=== PATIENT | male | born 1940 | race Caucasian/White ===

== ENCOUNTER 2018-06-04 19:45 | Emergency (ER) | payer MEDICARE ==
--- NOTE | 2018-06-04 19:59 | EDM.PDOC ---
ED HPI GENERAL MEDICAL PROBLEM - General Chief Complaint: Genitourinary Problem Stated Complaint: RUNNING A TEMP/POSS UTI/URINATING FREQUENTLY Time Seen by Provider: 06/04/18 19:58 Source of Information: Reports: Patient - History of Present Illness INITIAL COMMENTS - FREE TEXT/NARRATIVE: Patient is here for evaluation of overall feeling unwell. States that he is suspected fever on several occasions over the past week, it goes up to 102 but immediately comes down with ibuprofen. He states he is urinating more frequently, occ mild dysuria but no hematuria. Occasional cough but this is nonproductive and patient states that he does not have any shortness of breath wheezing or chest pain. Denies any abdominal pain or vomiting. Denies any diarrhea. Occasional nausea when his fever spikes. Denies any unhealing wounds, denies any joint pain. Chronic medical diagnosis of hypertension, diabetes and neuropathy. - Related Data Allergies Allergy/AdvReac Type Severity Reaction Status Date / Time No Known Allergies Allergy Verified 06/04/18 20:00 Home Meds: Home Meds Allopurinol [Zyloprim] 1 tab PO DAILY 06/04/18 [History] Aspirin [Ecotrin] 162.5 mg PO DAILY 06/04/18 [History] Calcium Carbonate/Vitamin D3 [Calcium 600 + Vit D 400 Softgl] 1 cap PO BID 06/04 [History] Ciprofloxacin HCl [Cipro] 500 mg PO BID #28 tablet 06/04/18 [Rx] Colestipol HCl [Colestipol] 100 mg PO DAILY 06/04/18 [History] Docusate Sodium [Colace] 1 cap PO DAILY 06/04/18 [History] Doxycycline [Vibramycin] 100 mg PO BID #60 cap 06/04/18 [Rx] Gabapentin [Neurontin] 200 cap PO TID 06/04/18 [History] Multivitamin [Multivitamins] 1 cap PO DAILY 06/04/18 [History] Simvastatin [Zocor] 40 mg PO BEDTIME 06/04/18 [History] ED ROS GENERAL - Review of Systems Review Of Systems: See Below Constitutional: Reports: Fever, Chills, Fatigue HEENT: Reports: No Symptoms Respiratory: Reports: Cough. Denies: Shortness of Breath, Wheezing Cardiovascular: Reports: No Symptoms GI/Abdominal: Reports: No Symptoms : Reports: Dysuria, Frequency, Urinary Retention. Denies: Hematuria Musculoskeletal: Reports: No Symptoms Skin: Reports: No Symptoms Neurological: Reports: No Symptoms Psychiatric: Reports: No Symptoms ED EXAM, RENAL/ - Physical Exam Exam: See Below Exam Limited By: No Limitations General Appearance: Alert, WD/WN, No Apparent Distress Throat/Mouth: Normal Oropharynx, Other (Poor dentition) Head: Atraumatic, Normocephalic Neck: Normal Inspection, Supple, Non-Tender Respiratory/Chest: No Respiratory Distress, Lungs Clear, Normal Breath Sounds, No Accessory Muscle Use Cardiovascular: Normal Peripheral Pulses, Regular Rate, Rhythm, No Murmur, Other (Difficult to auscultate heart sounds due to body habitus) GI/Abdominal: Normal Bowel Sounds, Soft, Non-Tender, Other (NO CVA tenderness) (Male) Exam: Other (Mild prostate enlargement but prostate is difficult to feel d/t body habitus.) Back Exam: No: CVA Tenderness (L), CVA Tenderness (R) Neurological: Alert, Oriented Psychiatric: Normal Affect, Normal Mood Skin Exam: Warm, Dry, Intact EKG INTERPRETATION EKG Date: 06/04/18 Time: 20:25 Rhythm: NSR Rate (Beats/Min): 98 [place]: LAD-Left [place] Deviation EKG Interpretation Comments: Reviewed with Dr Ospina, suggestive of old inferior wall [place] Course - Vital Signs Last Recorded V/S: Last Vital Signs Temp 98.4 F 06/04/18 19:56 Pulse 106 H 06/04/18 19:56 Resp 18 06/04/18 19:56 BP 98/71 06/04/18 19:56 Pulse Ox 92 L 06/04/18 19:56 - Orders/Labs/Meds Orders: Active Orders 24 hr Category Date Time Status Bladder Scan [RC] ASDIRECTED Care 06/04/18 21:09 Active EKG 12 Lead [EKG Documentation Completion] [RC] STAT Care 06/04/18 20:10 Active CXR [Chest 2V] [CR] Stat Exams 06/04/18 20:11 Taken Sodium Chloride 0.9% [Normal Saline] 1,000 ml Med 06/04/18 20:11 Active IV ONETIME Medication Orders Sodium Chloride (Normal Saline) 1,000 mls @ 500 mls/hr IV ONETIME ONE Stop: 06/04/18 22:10 Last Admin: 06/04/18 20:22 Dose: 500 mls/hr Labs: Laboratory Tests 06/04/18 06/04/18 06/04/18 Range/Units 20:12 20:20 20:20 WBC 10.74 H (4.23-9.07) K/mm3 RBC 4.91 (4.63-6.08) M/mm3 Hgb 14.5 (13.7-17.5) gm/L Hct 43.7 (40.1-51.0) % MCV 89.0 (79.0-92.2) fl MCH 29.5 (25.7-32.2) pg MCHC 33.2 (32.2-35.5) g/dl RDW Std Deviation 42.9 (35.1-43.9) fL Plt Count 195 (163-337) K/mm3 MPV 8.9 L (9.4-12.3) fl Neutrophils % (Manual) 78 H (40-60) % Band Neutrophils % 0 (0-10) % Lymphocytes % (Manual) 12 L (20-40) % Atypical Lymphs % 0 % Monocytes % (Manual) 5 (2-10) % Eosinophils % (Manual) 4 (0.8-7.0) % Basophils % (Manual) 1 (0.2-1.2) Platelet Estimate Adequate Plt Morphology Comment Normal RBC Morph Comment Normal Sodium 139 (136-145) mEq/L Potassium 3.8 (3.5-5.1) mEq/L Chloride 103 (98-107) mEq/L Carbon Dioxide 26 (21-32) mEq/L Anion Gap 13.8 (5-15) BUN 21 H (7-18) mg/dL Creatinine 1.5 H (0.7-1.3) mg/dL Est Cr Clr Drug Dosing 47.35 mL/min Estimated GFR (MDRD) 46 (>60) mL/min BUN/Creatinine Ratio 14.0 (14-18) Glucose 128 H (83-115) mg/dL Calcium 9.1 (8.5-10.1) mg/dL Total Bilirubin 2.0 H (0.2-1.0) mg/dL AST 25 (15-37) U/L ALT 36 (16-63) U/L Alkaline Phosphatase 89 (46-116) U/L Troponin I < 0.017 (0.00-0.056) ng/mL C-Reactive Protein 12.0 H* (<1.0) mg/dL Total Protein 7.4 (6.4-8.2) g/dl Albumin 3.3 L (3.4-5.0) g/dl Globulin 4.1 gm/dL Albumin/Globulin Ratio 0.8 L (1-2) TSH 3rd Generation 2.809 (0.358-3.74) uIU/mL Urine Color Yellow (Yellow) Urine Appearance Cloudy H (Clear) Urine pH 6.0 (5.0-8.0) Ur Specific [place] 1.020 (1.005-1.030) Urine Protein 1+ H (Negative) Urine Glucose (UA) Negative (Negative) Urine Ketones 2+ H (Negative) Urine Occult Blood 2+ H (Negative) Urine Nitrite Positive H (Negative) Urine Bilirubin Negative (Negative) Urine Urobilinogen 1.0 (0.2-1.0) Ur Leukocyte Esterase 2+ H (Negative) Urine RBC 5-10 H (0-5) /hpf Urine WBC >100 H (0-5) /hpf Urine WBC Clumps Many (NOT SEEN) /hpf Ur Epithelial Cells 5-10 H (0-5) /hpf Urine Bacteria Many H (FEW) /hpf Urine Mucus Moderate H (FEW) /hpf Meds: Medications Generic Name Dose Route Start Last Admin Trade Name Freq PRN Reason Stop Dose Admin Sodium Chloride 1,000 mls @ 500 mls/hr 06/04/18 20:11 06/04/18 20:22 Normal Saline IV 06/04/18 22:10 500 mls/hr ONETIME ONE Administration Discontinued Medications Generic Name Dose Route Start Last Admin Trade Name Freq PRN Reason Stop Dose Admin Ceftriaxone Sodium 1 gm/ 100 mls @ 200 mls/hr 06/04/18 21:04 06/04/18 21:12 Sodium Chloride IV 06/04/18 21:33 200 mls/hr ONETIME ONE Administration Levofloxacin 500 mg 06/04/18 21:04 06/04/18 21:12 Levaquin PO 06/04/18 21:05 500 mg ONETIME ONE Administration - Re-Assessments/Exams Free Text/Narrative Re-Assessment/Exam: Urinalysis demonstrates significant infection. Mild prostate enlargement. Post-void residual demonstrated 65mL urine. WBC 10,740 with 78% neutrophils and no bands. CRP is 12. He is currently afebrile. Eating and drinking well. Discussed this with Dr. Ospina, will treat UTI/prostatitis with Cipro 14 days and doxycycline 30 days. Will likely need repeat UA after completion of treatment and possibly urology consult but patient will need to discuss this with PCP. Advised patient to increase fluid intake. Lungs CTA bilaterally, chest x-ray is unremarkable but official report is pending. Patient will need to follow up with his PCP early next week or certainly return to the emergency room if needed. 06/04/18 21:55 06/04/18 22:11 Departure - Departure Time of Disposition: 22:12 Disposition: Home, Self-Care 01 Condition: Fair Clinical Impression: Prostatitis UTI (urinary tract infection) Qualifiers: Urinary tract infection type: acute cystitis Hematuria presence: with hematuria Qualified Code(s): N30.01 - Acute cystitis with hematuria - Discharge Information Prescriptions: Ciprofloxacin HCl [Cipro] 500 mg PO BID #28 tablet Doxycycline [Vibramycin] 100 mg PO BID #60 cap Instructions: Urinary Tract Infection, Adult, [id number], Prostatitis, Easy- to-Read Referrals: Giorgio Bass MD [Primary Care Provider] - Forms: ED Department Discharge Additional Instructions: You were diagnosed with bladder infection and prostatitis. You have been prescribed cipro 2x daily for 2 weeks and doxycycline 2x daily for a month. You need to follow-up with your PCP next week or return to ED for any new or worsening symptoms. - My Orders Last 24 Hours: My Active Orders 06/04/18 20:10 EKG 12 Lead [EKG Documentation Completion] [RC] STAT 06/04/18 20:11 CXR [Chest 2V] [CR] Stat Sodium Chloride 0.9% [Normal Saline] 1,000 ml IV ONETIME 06/04/18 21:09 Bladder Scan [RC] ASDIRECTED - Assessment/Plan Last 24 Hours: My Active Orders 06/04/18 20:10 EKG 12 Lead [EKG Documentation Completion] [RC] STAT 06/04/18 20:11 CXR [Chest 2V] [CR] Stat Sodium Chloride 0.9% [Normal Saline] 1,000 ml IV ONETIME 06/04/18 21:09 Bladder Scan [RC] ASDIRECTED
[2018-06-04 20:00] VITALS: BP 98/71
[2018-06-04] MEDS ORDERED: Sodium Chloride 0.9% 1,000 ML IV ONE (20:11)
[2018-06-04] MEDS ORDERED: Levofloxacin 500 MG Tab PO ONE (21:04)
[2018-06-04] MEDS ORDERED: cefTRIAXone 1 GM in Sodium Chloride 0.9% 100 ML IV ONE (21:04)
--- NOTE | 2018-06-06 17:03 | CR ---
Chest: Two views of the chest were obtained. Comparison: Prior chest x-ray of 04/03/15. Heart size is normal. Tortuous thoracic aorta is seen. Lungs are clear without acute parenchymal change. Bony structures show degenerative endplate spurring within the spine. Impression: 1. Nothing acute is appreciated on two-view chest x-ray. Diagnostic code #2
== END 2018-06-04 22:20 | disposition home or self-care (01) ==
LOC: JD.ED 19:45
DX: N30.01 Acute cystitis with hematuria (principal); N41.9 Inflammatory disease of prostate, unspecified; Z79.899 Other long term (current) drug therapy; Z79.82 Long term (current) use of aspirin
CPT/HCPCS: 36415; 51798; 71046; 80053; 81001; 84443; 84484; 85007; 85027; 86140; 93005; 96361; 96365; 99284; A9270; J0696; J7030; J7040; 93010

== ENCOUNTER 2019-11-17 12:23 | Emergency (ER) | payer MEDICARE, OTHER ==
[2019-11-17] MEDS ORDERED: Dextrose 5%-0.9% NaCl 1,000 ML IV SCH (13:45)
--- NOTE | 2019-11-17 14:06 | EDM.PDOC ---
ED HPI GENERAL MEDICAL PROBLEM - General Chief Complaint: Syncope Stated Complaint: PASSING OUT, BP LOW, LIGHTHEADED Time Seen by Provider: 11/17/19 14:04 Source of Information: Reports: Patient, Family (female friend) History Limitations: Reports: No Limitations - History of Present Illness INITIAL COMMENTS - FREE TEXT/NARRATIVE: 79-year-old male presents to the ED just generally not feeling well. He states he got up and came downstairs this morning and felt a little weak and a little bit dizzy and not not quite himself. He was winded on minimal exertion.in his easy chair and his female friend brought him a cup of coffee per usual. When he went to go back upstairs he barely made it up a flight of stairs before feeling so short of wind and that he might pass out. He then made his way to the bedroom and apparently passed out completely on the bed lost control of his bladder but not his bowel. When his female friend attended him she found him to wake be quite cool and clammy. Patient is known to be diabetic but does not take insulin for diabetes. When she checked his sugar this morning it was 110. Since that time he is just generally not feeling well. States he feels much more short of breath than usual has a bit of a headache Onset: Today Onset Date: 11/17/19 Onset Time: 08:00 Duration: Hour(s):, Constant, Waxing/Waning Location: Reports: Generalized (My sense of shortness of breath on minimal exertion. No pleuritic chest pain no hemoptysis. Appreciates dyspnea on minimal exertion) Quality: Reports: Other Severity: Moderate (Me on minimal exertion) Improves with: Reports: Rest Worsens with: Reports: Other Context: Reports: Other (Spontaneous development overnight and was present this morning when he first got up). Denies: Activity (Walking.), Exercise, Lifting, Sick Contact, Trauma Associated Symptoms: Reports: Cough, Loss of Appetite, Malaise (Nonproductive), Shortness of Breath, Weakness. 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) - Related Data Allergies Allergy/AdvReac Type Severity Reaction Status Date / Time No Known Allergies Allergy Verified 11/17/19 13:10 Home Meds: Home Meds Aspirin [Ecotrin EC] 81 mg PO DAILY 06/04/18 [History] Calcium Carbonate/Vitamin D3 [Calcium 600 + Vit D 400 Softgl] 1 cap PO BID 06/04 [History] Colestipol HCl [Colestipol] 1 gram PO DAILY 06/04/18 [History] Gabapentin [Neurontin] 200 cap PO TID 06/04/18 [History] Multivitamin [Multivitamins] 1 cap PO DAILY 06/04/18 [History] Apixaban [Eliquis] 5 mg PO BID #60 tablet 11/17/19 [Rx] Apixaban [Eliquis] 10 mg PO BID #13 tablet 11/17/19 [Rx] Doxycycline [Vibramycin] 100 mg PO BID #16 cap 11/17/19 [Rx] Empagliflozin [Jardiance] 10 mg PO DAILY 11/17/19 [History] Latanoprost 1 drop TOP QPM 11/17/19 [History] Metoprolol Tartrate [Lopressor] 100 mg PO DAILY 11/17/19 [History] Sertraline [Zoloft] 100 mg PO DAILY 11/17/19 [History] Simvastatin [Zocor] 80 mg PO DAILY 11/17/19 [History] metFORMIN HCl [Metformin HCl] 1,500 mg PO DAILY 11/17/19 [History] Past Medical History Cardiovascular History: Reports: High Cholesterol, Hypertension Musculoskeletal History: Reports: Gout, Other (See Below) Other Musculoskeletal History: numbness in both hands Neurological History: Reports: Other (See Below) Other Neuro History: fractured vertebrae, nerve damage Social & Family History - Tobacco Use Smoking Status *Q: Never Smoker - Caffeine Use Caffeine Use: Reports: Coffee - Recreational Drug Use Recreational Drug Use: No - Living Situation & Occupation Living situation: Reports: Single, Other Occupation: Retired ED ROS GENERAL - Review of Systems Review Of Systems: See Below Constitutional: Reports: Malaise, Weakness, Fatigue, Decreased Appetite. Denies : Fever, Chills HEENT: Reports: Glasses Respiratory: Reports: Shortness of Breath (Usually nonproductive), Cough. Denies: Wheezing, Pleuritic Chest Pain, Sputum Cardiovascular: Reports: Blood Pressure Problem, Dyspnea on Exertion, Lightheadedness. Denies: Chest Pain, Claudication, Edema, Orthopnea, Palpitations Endocrine: Reports: Fatigue GI/Abdominal: Reports: Abdominal Pain, Constipation (Comes and goes), Decreased Appetite : Reports: Frequency, Other Musculoskeletal: Reports: No Symptoms Skin: Reports: No Symptoms Neurological: Reports: Dizziness Psychiatric: Reports: No Symptoms Hematologic/Lymphatic: Reports: No Symptoms Immunologic: Reports: No Symptoms ED EXAM, DIZZINESS - Physical Exam Exam: See Below Exam Limited By: No Limitations General Appearance: Alert, WD/WN, Mild Distress, Other (Temperature is 36.3 with a heart rate of 51 I sinus bradycardia on monitor. Respiratory of 16-18 with O2 sats of 94 to 96% on room air.) Eye Exam: Bilateral Eye: Normal Inspection Ears: Normal TMs Throat/Mouth: Normal Inspection (Is slightly dry.), Normal Lips, Normal Oropharynx, Other Head Exam: Atraumatic, Normocephalic Neck: Normal Inspection, Supple, Non-Tender, Full Range of Motion, Tender Lateral (Mildly tender bilaterally due to arthritic change.). No: Carotid Bruit , Lymphadenopathy (L), Lymphadenopathy (R) Respiratory/Chest: No Respiratory Distress, Respiratory Distress, Decreased Breath Sounds Cardiovascular: No Edema, No Gallop, No Murmur, No Rub, Bradycardia. No: Normal Peripheral Pulses, Regular Rate, Rhythm GI/Abdominal: Normal Bowel Sounds, Soft, Non-Tender, No Organomegaly, No Abnormal Bruit, No Mass, Pelvis Stable, Other (Currently obese. Abdominal girth limits ability to palpate solid organs.) Neurological: Alert, Normal Mood/Affect, Normal Dorsiflexion, CN II-XII Intact, No Motor/Sensory Deficits, Oriented x 3 DTR: 0: Achilles (R), Achilles (L), 1+: Bicep (R), Bicep (L), Patella (R), Patella (L) Back Exam: Normal Inspection, Decreased Range of Motion. No: CVA Tenderness (L) , CVA Tenderness (R) Extremities: Normal Inspection, Normal Range of Motion, Non-Tender, Other (Is limited) Psychiatric: Normal Affect ( internal and external rotation of both hips due to arthritis. Evidence of osteoarthritic change in both knees.), Normal Mood Skin Exam: Warm, Dry, Intact, Normal Color, No Rash EKG INTERPRETATION EKG Date: 11/17/19 Time: 13:20 Rhythm: Other Rate (Beats/Min): 51 [place]: LAD-Left [place] Deviation (Next left axis deviation of -64 degrees) P-Wave: Present (First-degree AV block) QRS: LBBB ST-T: Other (T wave inversion in leads III and aVL nonspecific findings) QT: Normal EKG Interpretation Comments: Abnormal ECG Course - Vital Signs Last Recorded V/S: Last Vital Signs Temp 36.2 C 11/17/19 18:07 Pulse 48 L 11/17/19 18:07 Resp 23 H 11/17/19 18:07 BP 146/81 H 11/17/19 18:07 Pulse Ox 97 11/17/19 18:07 - Orders/Labs/Meds Orders: Active Orders 24 hr Category Date Time Status EKG Documentation Completion [RC] STAT Care 11/17/19 13:16 Active EKG Documentation Completion [RC] STAT Care 11/17/19 13:41 Inactive Isolation [COMM] Routine Oth 11/17/19 14:33 Ordered Labs: Laboratory Tests 11/17/19 11/17/19 11/17/19 Range/Units 14:05 14:05 14:05 WBC 8.42 (4.23-9.07) K/mm3 RBC 5.07 (4.63-6.08) M/mm3 Hgb 13.7 (13.7-17.5) gm/dl Hct 44.3 (40.1-51.0) % MCV 87.4 (79.0-92.2) fl MCH 27.0 (25.7-32.2) pg MCHC 30.9 L (32.2-35.5) g/dl RDW Std Deviation 48.2 H (35.1-43.9) fL Plt Count 258 (163-337) K/mm3 MPV 8.7 L (9.4-12.3) fl Neut % (Auto) 69.8 H (34.0-67.9) % Lymph % (Auto) 14.1 L (21.8-53.1) % [place] % (Auto) 8.9 (5.3-12.2) % Eos % (Auto) 6.5 (0.8-7.0) Baso % (Auto) 0.5 (0.1-1.2) % Neut # (Auto) 5.87 H (1.78-5.38) K/mm3 Lymph # (Auto) 1.19 L (1.32-3.57) K/mm3 [place] # (Auto) 0.75 (0.30-0.82) K/mm3 Eos # (Auto) 0.55 H (0.04-0.54) K/mm3 Baso # (Auto) 0.04 (0.01-0.08) K/mm3 PT (9.7-12.0) SECONDS INR APTT (22-31) SECONDS D-Dimer, Quantitative (0.19-0.50) mg/L Sodium 140 (136-145) mEq/L Potassium 4.3 (3.5-5.1) mEq/L Chloride 105 (98-107) mEq/L Carbon Dioxide 26 (21-32) mEq/L Anion Gap 13.3 (5-15) BUN 18 (7-18) mg/dL Creatinine 1.1 (0.7-1.3) mg/dL Est Cr Clr Drug Dosing 63.56 mL/min Estimated GFR (MDRD) > 60 (>60) mL/min BUN/Creatinine Ratio 16.4 (14-18) Glucose 106 (83-115) mg/dL Hemoglobin A1c (4.50-6.20) % Lactic Acid (0.4-2.0) mmol/L Calcium 8.7 (8.5-10.1) mg/dL Total Bilirubin 1.2 H (0.2-1.0) mg/dL AST 17 (15-37) U/L ALT 24 (16-63) U/L Alkaline Phosphatase 86 (46-116) U/L Troponin I < 0.017 (0.00-0.056) ng/mL C-Reactive Protein (<1.0) mg/dL NT-Pro-B Natriuret Pep 269 (0-450) pg/mL Total Protein 7.1 (6.4-8.2) g/dl Albumin 3.4 (3.4-5.0) g/dl Globulin 3.7 gm/dL Albumin/Globulin Ratio 0.9 L (1-2) Urine Color (Yellow) Urine Appearance (Clear) Urine pH (5.0-8.0) Ur Specific [place] (1.005-1.030) Urine Protein (Negative) Urine Glucose (UA) (Negative) Urine Ketones (Negative) Urine Occult Blood (Negative) Urine Nitrite (Negative) Urine Bilirubin (Negative) Urine Urobilinogen (0.2-1.0) Ur Leukocyte Esterase (Negative) Urine RBC (0-5) /hpf Urine WBC (0-5) /hpf Ur Squamous Epith Cells (0-5) /hpf Urine Bacteria (FEW) /hpf Urine Mucus (FEW) /hpf 11/17/19 11/17/19 11/17/19 Range/Units 14:05 14:05 14:05 WBC (4.23-9.07) K/mm3 RBC (4.63-6.08) M/mm3 Hgb (13.7-17.5) gm/dl Hct (40.1-51.0) % MCV (79.0-92.2) fl MCH (25.7-32.2) pg MCHC (32.2-35.5) g/dl RDW Std Deviation (35.1-43.9) fL Plt Count (163-337) K/mm3 MPV (9.4-12.3) fl Neut % (Auto) (34.0-67.9) % Lymph % (Auto) (21.8-53.1) % [place] % (Auto) (5.3-12.2) % Eos % (Auto) (0.8-7.0) Baso % (Auto) (0.1-1.2) % Neut # (Auto) (1.78-5.38) K/mm3 Lymph # (Auto) (1.32-3.57) K/mm3 [place] # (Auto) (0.30-0.82) K/mm3 Eos # (Auto) (0.04-0.54) K/mm3 Baso # (Auto) (0.01-0.08) K/mm3 PT (9.7-12.0) SECONDS INR APTT (22-31) SECONDS D-Dimer, Quantitative (0.19-0.50) mg/L Sodium (136-145) mEq/L Potassium (3.5-5.1) mEq/L Chloride (98-107) mEq/L Carbon Dioxide (21-32) mEq/L Anion Gap (5-15) BUN (7-18) mg/dL Creatinine (0.7-1.3) mg/dL Est Cr Clr Drug Dosing mL/min Estimated GFR (MDRD) (>60) mL/min BUN/Creatinine Ratio (14-18) Glucose (83-115) mg/dL Hemoglobin A1c 6.00 (4.50-6.20) % Lactic Acid 1.1 (0.4-2.0) mmol/L Calcium (8.5-10.1) mg/dL Total Bilirubin (0.2-1.0) mg/dL AST (15-37) U/L ALT (16-63) U/L Alkaline Phosphatase (46-116) U/L Troponin I (0.00-0.056) ng/mL C-Reactive Protein 2.8 H* (<1.0) mg/dL NT-Pro-B Natriuret Pep (0-450) pg/mL Total Protein (6.4-8.2) g/dl Albumin (3.4-5.0) g/dl Globulin gm/dL Albumin/Globulin Ratio (1-2) Urine Color (Yellow) Urine Appearance (Clear) Urine pH (5.0-8.0) Ur Specific [place] (1.005-1.030) Urine Protein (Negative) Urine Glucose (UA) (Negative) Urine Ketones (Negative) Urine Occult Blood (Negative) Urine Nitrite (Negative) Urine Bilirubin (Negative) Urine Urobilinogen (0.2-1.0) Ur Leukocyte Esterase (Negative) Urine RBC (0-5) /hpf Urine WBC (0-5) /hpf Ur Squamous Epith Cells (0-5) /hpf Urine Bacteria (FEW) /hpf Urine Mucus (FEW) /hpf 11/17/19 11/17/19 Range/Units 14:51 14:54 WBC (4.23-9.07) K/mm3 RBC (4.63-6.08) M/mm3 Hgb (13.7-17.5) gm/dl Hct (40.1-51.0) % MCV (79.0-92.2) fl MCH (25.7-32.2) pg MCHC (32.2-35.5) g/dl RDW Std Deviation (35.1-43.9) fL Plt Count (163-337) K/mm3 MPV (9.4-12.3) fl Neut % (Auto) (34.0-67.9) % Lymph % (Auto) (21.8-53.1) % [place] % (Auto) (5.3-12.2) % Eos % (Auto) (0.8-7.0) Baso % (Auto) (0.1-1.2) % Neut # (Auto) (1.78-5.38) K/mm3 Lymph # (Auto) (1.32-3.57) K/mm3 [place] # (Auto) (0.30-0.82) K/mm3 Eos # (Auto) (0.04-0.54) K/mm3 Baso # (Auto) (0.01-0.08) K/mm3 PT 10.9 (9.7-12.0) SECONDS INR 1.00 APTT 28 (22-31) SECONDS D-Dimer, Quantitative 3.88 H (0.19-0.50) mg/L Sodium (136-145) mEq/L Potassium (3.5-5.1) mEq/L Chloride (98-107) mEq/L Carbon Dioxide (21-32) mEq/L Anion Gap (5-15) BUN (7-18) mg/dL Creatinine (0.7-1.3) mg/dL Est Cr Clr Drug Dosing mL/min Estimated GFR (MDRD) (>60) mL/min BUN/Creatinine Ratio (14-18) Glucose (83-115) mg/dL Hemoglobin A1c (4.50-6.20) % Lactic Acid (0.4-2.0) mmol/L Calcium (8.5-10.1) mg/dL Total Bilirubin (0.2-1.0) mg/dL AST (15-37) U/L ALT (16-63) U/L Alkaline Phosphatase (46-116) U/L Troponin I (0.00-0.056) ng/mL C-Reactive Protein (<1.0) mg/dL NT-Pro-B Natriuret Pep (0-450) pg/mL Total Protein (6.4-8.2) g/dl Albumin (3.4-5.0) g/dl Globulin gm/dL Albumin/Globulin Ratio (1-2) Urine Color Yellow (Yellow) Urine Appearance Clear (Clear) Urine pH 7.0 (5.0-8.0) Ur Specific [place] 1.020 (1.005-1.030) Urine Protein Negative (Negative) Urine Glucose (UA) Negative (Negative) Urine Ketones Negative (Negative) Urine Occult Blood Negative (Negative) Urine Nitrite Negative (Negative) Urine Bilirubin Negative (Negative) Urine Urobilinogen 0.2 (0.2-1.0) Ur Leukocyte Esterase Negative (Negative) Urine RBC 0-5 (0-5) /hpf Urine WBC 0-5 (0-5) /hpf Ur Squamous Epith Cells 0-5 (0-5) /hpf Urine Bacteria Few (FEW) /hpf Urine Mucus Few (FEW) /hpf Meds: Medications Discontinued Medications Generic Name Dose Route Start Last Admin Trade Name Mauriceq PRN Reason Stop Dose Admin Apixaban 10 mg 11/17/19 17:08 11/17/19 17:36 Eliquis PO 11/17/19 17:09 10 mg ONETIME ONE Administration Dextrose/Sodium Chloride 1,000 mls @ 350 mls/hr 11/17/19 13:45 11/17/19 14:05 Dextrose 5%-Normal Saline IV 350 mls/hr ASDIRECTED GEORGE Administration Sodium Chloride 100 mls @ 60 mls/hr 11/17/19 16:15 11/17/19 16:36 Normal Saline IV 60 mls/hr ASDIRECTED GEORGE Administration Iopamidol 100 ml 11/17/19 16:01 11/17/19 16:35 Isovue-370 (76%) IVPUSH 11/17/19 16:02 100 ml ONETIME ONE Administration Sodium Chloride 10 ml 11/17/19 16:01 11/17/19 16:35 Saline Flush FLUSH 11/17/19 16:02 10 ml ONETIME ONE Administration - Radiology Interpretation Free Text/Narrative:: 79-year-old male presents to the ED just generally not feeling good. He states when he got up this morning he came downstairs and he felt a little short of breath. He sat down in his easy chair and his friend brought him a cup of coffee as per usual. When he got up to go upstairs he felt very short of breath when he reached the top of the stairs and like he was going to pass out. He staggered into the bedroom side on the bed and did pass out apparently on the bed. He did lose control of his bladder but not his bowel. When he came around he did realize that he passed out and his friend was with him to arouse him. Since that time he is continued to feel short of breath even after a short nap. He has mild cough but no defined fever. He did not have much to eat this morning. Has taken his regular medications. Examination reveals initial O2 sats were 96% but they did drift down towards 92% once he was stable for period of time. Plan chest x-ray and routine labs and EKG to be done and cardiac markers. - Re-Assessments/Exams Free Text/Narrative Re-Assessment/Exam: 11/17/19 14:38 chest x-ray done portably suggests a infiltrate in the right lower lobe of the lung possibly due to a pneumonia. It is difficult to confirm due to the patient's size. Structures appear unremarkable. I am going to CT his chest to rule out an infection. 11/17/19 15:01 Hematology reveals a white count of 8.42 with 70% neutrophils. Hemoglobin is 13.7 with hematocrit of 44.3 MCV is 87.4 platelet count 258,000. Sodium 140 with potassium 4.3 chloride 105 with a bicarb of 26. Anion gap is 13.3 with a BUN of 18 and a creatinine of 1.1. GFR is greater than 60. Glucose 106 with a calcium of 8.7 bilirubin is minimally elevated at 1.2 with an AST of 17 ALT of 24 alk phosphatase is 86. 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 Troponin I is less than 0.017. BNP is 269. Total protein is 7.1 with an albumin fraction of 3.4 11/17/19 15:26 T of his chest has been completed with out contrast. He does have a small right sided pleural effusion with some inflammatory changes suggesting early pneumonia in this area. I will be to place him on Levaquin 500 mg once daily for the next 10 days. 11/17/19 15:54 D-dimer did come back elevated at 3.88. Influenza screen is negative. CRP is elevated at 2.8 urinalysis is completely normal. His d-dimer may be up because there is likely a pneumonia in his right lower lobe although his white count is normal. I am therefore pretty well obligated to pursue a CT pulmonary angiogram to make sure that he does not have a PE as a cause of his dyspnea today. This finding with the patient and his friend and he is willing to pursue CT pulmonary angiogram. 11/17/19 17:41: CT pulmonary angiogram continues to show a small right-sided pleural effusion with adjacent parenchymal density suggesting possible mild pneumonia. This could also represent fibrosis and/or atelectasis according to the radiologist. CT pulmonary angiogram confirms several pulmonary emboli within the segmental and subsegmental left upper lung artery. Other pulmonary emboli are appreciated. Therefore the patient will have to go on anticoagulation and plan will be to place him on Eliquis 10 mg twice daily for the next week and then 5 mg twice daily for the next 6 months to prevent recurrence of PE. I am also going to place him on doxycycline 100 mg twice daily for for for 7 days to cover for possible or mild pneumonia in the base of his right lung. He will follow-up with [facility] as [facility] usually pay for his medications. We will send the chart to that institution so that they are aware of the diagnosis and treatment plan. Departure - Departure Time of Disposition: 17:32 Disposition: Home, Self-Care 01 Condition: Serious Clinical Impression: Pulmonary embolism on left, Pleural effusion, right - Discharge Information *PRESCRIPTION DRUG MONITORING PROGRAM REVIEWED*: Not Applicable *COPY OF PRESCRIPTION DRUG MONITORING REPORT IN PATIENT VIRY: Not Applicable Prescriptions: Apixaban [Eliquis] 10 mg PO BID #13 tablet Apixaban [Eliquis] 5 mg PO BID #60 tablet Doxycycline [Vibramycin] 100 mg PO BID #16 cap Instructions: Pulmonary Embolism Referrals: Giorgio Bass MD [Primary Care Provider] - Forms: ED Department Discharge Additional Instructions: Evaluation in the emergency room today in regards to sudden development of severe shortness of breath with no associated cough or significant chest pain. Dilation the emergency room did not reveal any signs of fever. Minimal cough or minimal sputum production. No coughing up of blood. Pleat lab work carried out revealed no significant elevation of the white blood cell count to suggest an infection. However markers for inflammation were elevated at 2.8 suggesting a low-grade infection somewhere. Chest x-ray revealed an infiltrate in the right lower lobe of your lung suggestive of a possible pneumonia but there is also some associated scar tissue in this area and a small layer of fluid. CT scan of the area confirmed a small pleural effusion or collection of fluid in the bottom of the right lung but also some infiltrate suggestive of possible early pneumonia. After this lab test came back revealing an elevated d-dimer at 3.88 with normal being less than 1. This is a marker we use for blood clots. Therefore repeat CT of your chest was done with IV contrast and confirmed that you had multiple blood clots within the left lung arteries but none that we could identify on the right side. Is the reason for the shortness of breath that came on suddenly this morning. Clot likely came out of 1 of your calves in your legs. The mid is therefore blood thinner Eliquis 10 mg twice daily for 1 week and then to take 5 mg tablet twice daily for the next 6 months to ensure that the blood clot resolves completely and does not recur. Due to the possibility of infection in the right lower lobe of lung I am going to suggest antibiotic doxycycline 100 mg twice a day for the next 7 days to clear up any infection in this area. You should stop the baby aspirin that you are taking daily while taking the Eliquis blood thinner to prevent any bleeding from the stomach. [facility] to see if they will in fact pay for medication during your acute illness. Give them a call tomorrow to check on this. Your first tablet of Eliquis was given in the ED tonight but I would suggest picking up the first week's worth of medication as it will likely take that long for the [facility] to [facility] and get it in the [facility] to you. Sepsis Event Note - Evaluation Sepsis Screening Result: No Definite Risk - Focused Exam Vital Signs: Vital Signs Temp Pulse Resp BP Pulse Ox 11/17/19 18:07 36.2 C 48 L 23 H 146/81 H 97 11/17/19 13:02 36.3 C 51 L 16 96 Date Exam was Performed: 11/17/19 Time Exam was Performed: 19:25 - My Orders Last 24 Hours: My Active Orders 11/17/19 13:16 EKG Documentation Completion [RC] STAT 11/17/19 13:41 EKG Documentation Completion [RC] STAT 11/17/19 14:33 Isolation [COMM] Routine - Assessment/Plan Last 24 Hours: My Active Orders 11/17/19 13:16 EKG Documentation Completion [RC] STAT 11/17/19 13:41 EKG Documentation Completion [RC] STAT 11/17/19 14:33 Isolation [COMM] Routine
--- NOTE | 2019-11-17 14:10 | CR ---
Chest: Portable view of the chest was obtained. Comparison: Prior chest x-ray of 04/03/15. Heart size is within normal limits for portable technique. Mild tortuosity of the thoracic aorta is seen. Questionable increased lung markings within the right base. Difficult on this exam to exclude a small area of pneumonia. Lungs otherwise are clear. Bony structures are unremarkable. Impression: 1. Questionable density within the right lung base and difficult to exclude small area of pneumonia. Upright PA and lateral view would be helpful to confirm or rule out, if patient's condition permits. 2. No additional abnormality is appreciated on portable chest x-ray. Diagnostic code #3 This report was dictated in MDT
--- NOTE | 2019-11-17 15:56 | CT ---
CT chest Technique: Multiple axial sections were obtained from above the lung apices inferiorly through the lung bases. Intravenous contrast not utilized. Comparison: Recent chest x-ray performed earlier the same day (1:13 PM). Findings: Atherosclerotic calcification is seen within a nondilated thoracic aorta. Prominent coronary artery calcification is seen. No pericardial thickening is seen. Cyst is noted within the liver measuring 3.3 cm in size. Small right-sided pleural effusion is seen. Adjacent focal parenchymal density is seen next to the pleural effusion. This parenchymal density has some areas of increased density raising the possibility of chronic atelectasis and scarring from aspiration. No acute parenchymal process is otherwise seen within the lungs. Minimal fibrosis is seen within the left lung base. Impression: 1. Small right-sided pleural effusion. Adjacent parenchymal density is seen showing increased density. This increased density makes the possibility of aspiration with fibrosis and atelectasis the most likely etiology. 2. Other findings believed to be incidental as noted above. Diagnostic code #3 This report was dictated in MDT
[2019-11-17] MEDS ORDERED: Iopamidol 755 Mg/ML 100 ML Bottle IVPUSH ONE (16:01)
[2019-11-17] MEDS ORDERED: Sodium Chloride 0.9% 10 ML Syringe FLUSH ONE (16:01)
[2019-11-17] MEDS ORDERED: Sodium Chloride 0.9% 100 ML IV SCH (16:15)
--- NOTE | 2019-11-17 16:47 | CT ---
CT chest Technique: Multiple axial sections through the chest were obtained. Intravenous contrast was utilized. Study performed as a pulmonary angiogram protocol. Comparison: Previous chest CT study performed earlier on the same day. Findings: Pulmonary arteries are well opacified. Several pulmonary emboli are seen within the segmental and subsegmental branches of the left upper lung pulmonary artery. No other pulmonary emboli are appreciated. Aorta shows atherosclerotic change. No mediastinal adenopathy seen. Coronary artery calcification noted. Small right-sided pleural effusion is seen. Continuing parenchymal density within the posterior right lung base is noted. Cyst is again seen within the liver. Impression: 1. Several pulmonary emboli within the segmental and subsegmental left upper lung artery. 2. Other findings within the chest are stable from chest CT performed earlier the same day. Diagnostic code #5 This report was dictated in MDT
[2019-11-17] MEDS ORDERED: Apixaban 5 MG Tab PO ONE (17:08)
[2019-11-17 18:08] VITALS: BP 146/81; PULSE 48
== END 2019-11-17 18:11 | disposition home or self-care (01) ==
LOC: JD.ED 12:23
DX: I26.99 Other pulmonary embolism without acute cor pulmonale (principal); J90 Pleural effusion, not elsewhere classified; M10.9 Gout, unspecified; E78.00 Pure hypercholesterolemia, unspecified; I10 Essential (primary) hypertension; Z79.84 Long term (current) use of oral hypoglycemic drugs; Z79.01 Long term (current) use of anticoagulants; Z79.899 Other long term (current) drug therapy
CPT/HCPCS: 36415; 71045; 71250; 71275; 80053; 81001; 83036; 83605; 83880; 84484; 85025; 85379; 85610; 85730; 86140; 87804; 93005; 96360; 96361; 99285; A9270; J7042; J7050; Q9967; 93010; 99284

== ENCOUNTER 2020-01-23 13:32 | Emergency (ER) | payer OTHER ==
[2020-01-23 13:57] VITALS: BP 128/95; PULSE 65
--- NOTE | 2020-01-23 14:30 | EDM.PDOC ---
<Sumaya Newby - Last Filed: 01/23/20 15:02> ED HPI GENERAL MEDICAL PROBLEM - General Chief Complaint: Eye Problems Stated Complaint: [facility] ISSUE [facility] Time Seen by Provider: 01/23/20 14:06 Source of Information: Reports: Patient, RN Notes Reviewed History Limitations: Reports: No Limitations - History of Present Illness INITIAL COMMENTS - FREE TEXT/NARRATIVE: Neo presents with complaints of "blurry vision" lasting for 45 minutes at around 11:00 today. He denies TREVINO, dizziness, nausea or vomiting. He has had no symptoms at the present time. He does not identify any modifiers. He has experienced this blurred vision change in 2005. 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 - Related Data Allergies Allergy/AdvReac Type Severity Reaction Status Date / Time No Known Allergies Allergy Verified 01/23/20 13:56 Home Meds: Home Meds Aspirin [Ecotrin EC] 81 mg PO DAILY 06/04/18 [History] Calcium Carbonate/Vitamin D3 [Calcium 600 + Vit D 400 Softgl] 1 cap PO BID 06/04 [History] Colestipol HCl [Colestipol] 1 gram PO DAILY 06/04/18 [History] Gabapentin [Neurontin] 200 cap PO TID 06/04/18 [History] Multivitamin [Multivitamins] 1 cap PO DAILY 06/04/18 [History] Apixaban [Eliquis] 5 mg PO BID #60 tablet 11/17/19 [Rx] Apixaban [Eliquis] 10 mg PO BID #13 tablet 11/17/19 [Rx] Doxycycline [Vibramycin] 100 mg PO BID #16 cap 11/17/19 [Rx] Empagliflozin [Jardiance] 10 mg PO DAILY 11/17/19 [History] Latanoprost 1 drop TOP QPM 11/17/19 [History] Metoprolol Tartrate [Lopressor] 100 mg PO DAILY 11/17/19 [History] Sertraline [Zoloft] 100 mg PO DAILY 11/17/19 [History] Simvastatin [Zocor] 80 mg PO DAILY 11/17/19 [History] metFORMIN HCl [Metformin HCl] 1,500 mg PO DAILY 11/17/19 [History] Past Medical History Cardiovascular History: Reports: High Cholesterol, Hypertension Musculoskeletal History: Reports: Gout, Other (See Below) Other Musculoskeletal History: numbness in both hands Neurological History: Reports: CVA (right eye), Other (See Below) Other Neuro History: fractured vertebrae, nerve damage Social & Family History - Tobacco Use Smoking Status *Q: Former Smoker Used Tobacco, but Quit: Yes Month/Year Tobacco Last Used: 1988 - Caffeine Use Caffeine Use: Reports: Coffee - Recreational Drug Use Recreational Drug Use: No - Living Situation & Occupation Living situation: Reports: Single, Other (Lives with caregiver) Occupation: Retired ED ROS GENERAL - Review of Systems Review Of Systems: Comprehensive ROS is negative, except as noted in HPI. ED EXAM GENERAL W FULL EYE - Physical Exam Exam: See Below Exam Limited By: No Limitations General Appearance: Alert, WD/WN, No Apparent Distress, Other (T: 97.4 P:65 Resp :20 B/P: 129/95 SpO2: 92) Eye Exam: Bilateral Eye: Abnormal EOM, EOMI, PERRL Head: Atraumatic, Normocephalic Neck: Normal Inspection, Supple, Non-Tender, Full Range of Motion Respiratory/Chest: No Respiratory Distress, Lungs Clear, Normal Breath Sounds, No Accessory Muscle Use, Chest Non-Tender Course - Vital Signs Last Recorded V/S: Last Vital Signs Temp 97.4 F 01/23/20 13:50 Pulse 65 01/23/20 13:50 Resp 20 01/23/20 13:50 BP 128/95 H 01/23/20 13:50 Pulse Ox 92 L 01/23/20 13:50 - Orders/Labs/Meds Orders: Active Orders 24 hr Category Date Time Status EKG Documentation Completion [RC] STAT Care 01/23/20 14:22 Active Labs: Laboratory Tests 01/23/20 01/23/20 01/23/20 Range/Units 14:50 14:50 14:50 WBC 6.75 (4.23-9.07) K/mm3 RBC 5.09 (4.63-6.08) M/mm3 Hgb 14.3 (13.7-17.5) gm/dl Hct 44.3 (40.1-51.0) % MCV 87.0 (79.0-92.2) fl MCH 28.1 (25.7-32.2) pg MCHC 32.3 (32.2-35.5) g/dl RDW Std Deviation 45.8 H (35.1-43.9) fL Plt Count 253 (163-337) K/mm3 MPV 8.8 L (9.4-12.3) fl Neut % (Auto) 63.1 (34.0-67.9) % Lymph % (Auto) 17.8 L (21.8-53.1) % Humphreys % (Auto) 10.4 (5.3-12.2) % Eos % (Auto) 7.9 H (0.8-7.0) Baso % (Auto) 0.4 (0.1-1.2) % Neut # (Auto) 4.26 (1.78-5.38) K/mm3 Lymph # (Auto) 1.20 L (1.32-3.57) K/mm3 [place]ys # (Auto) 0.70 (0.30-0.82) K/mm3 Eos # (Auto) 0.53 (0.04-0.54) K/mm3 Baso # (Auto) 0.03 (0.01-0.08) K/mm3 PT 11.0 (9.7-12.0) SECONDS INR 1.01 APTT 31 (22-31) SECONDS Sodium 141 (136-145) mEq/L Potassium 4.6 (3.5-5.1) mEq/L Chloride 103 (98-107) mEq/L Carbon Dioxide 29 (21-32) mEq/L Anion Gap 13.6 (5-15) BUN 20 H (7-18) mg/dL Creatinine 1.3 (0.7-1.3) mg/dL Est Cr Clr Drug Dosing 53.78 mL/min Estimated GFR (MDRD) 54 (>60) mL/min BUN/Creatinine Ratio 15.4 (14-18) Glucose 97 (83-115) mg/dL Calcium 9.6 (8.5-10.1) mg/dL Total Bilirubin 1.1 H (0.2-1.0) mg/dL AST 19 (15-37) U/L ALT 23 (16-63) U/L Alkaline Phosphatase 82 (46-116) U/L Troponin I < 0.017 (0.00-0.056) ng/mL Total Protein 7.5 (6.4-8.2) g/dl Albumin 3.6 (3.4-5.0) g/dl Globulin 3.9 gm/dL Albumin/Globulin Ratio 0.9 L (1-2) - Re-Assessments/Exams Free Text/Narrative Re-Assessment/Exam: 01/23/20 14:40 Neo is a 79 year old male, who presents with complaints of blurry vision change for 45 minutes around 11:00. He states he was watching TV sitting in his chair when it happened. He did not have any associated symptoms such as nausea, vomiting, dizziness, or diarrhea. He had a similar episode in 2005. He experienced a temporary blurred vision change for a brief period of time. 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 He was started on Eliquis 10mg BID for 7 days and then 5mg BID for six months. He was to follow up with Dr. Alisa Wiseman but due to COVID-19 he has not been able to. 01/23/20 15:02 Ct of Head w/o contrast interpretation 1. Minimal sinus findings believed to be nonacute 2. 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 No acute intracranial abnormality is appreciated. If patient's symptoms are persistent, MRI could then be considered. Departure - Departure Disposition: Home, Self-Care 01 Clinical Impression: Vision changes - Discharge Information Referrals: Cecilia Moses MD [Primary Care Provider] - 1 Week Forms: ED Department Discharge Additional Instructions: Take your medication as prescribed. Follow up with your doctor within a week. Follow up with your toe former stitchdowns this week. Please return if you are worse. Sepsis Event Note - Evaluation Sepsis Screening Result: No Definite Risk - Focused Exam Vital Signs: Vital Signs Temp Pulse Resp BP Pulse Ox 01/23/20 13:50 97.4 F 65 20 128/95 H 92 L Date Exam was Performed: 01/23/20 Time Exam was Performed: 15:02 <Shashi Smith - Last Filed: 01/23/20 15:46> EKG INTERPRETATION EKG Date: 01/23/20 Time: 14:41 Rhythm: Other (sinus bradycardia) Rate (Beats/Min): 55 [place]: Normal P-Wave: Present QRS: Normal ST-T: Normal QT: Normal IN/PQ Interval: 1st degree HB Course - Re-Assessments/Exams Free Text/Narrative Re-Assessment/Exam: 01/23/20 15:44 I examined the patient myself and I agree with Bharti's assessment and plan. The patient's CT shows nothing acute and his labs look good. He is on a blood thinner and he is back to baseline. I will have him follow up with his toe former stitchdowns this week. Departure - Departure Time of Disposition: 15:45 Condition: Good - Discharge Information *PRESCRIPTION DRUG MONITORING PROGRAM REVIEWED*: Not Applicable *COPY OF PRESCRIPTION DRUG MONITORING REPORT IN PATIENT VIRY: Not Applicable Sepsis Event Note - Focused Exam Date Exam was Performed: 01/23/20 Time Exam was Performed: 15:43
--- NOTE | 2020-01-23 14:51 | CT ---
Head CT Technique: Multiple axial sections through the brain were obtained. Intravenous contrast was not utilized. Comparison: No prior intracranial imaging is available. Findings: Ventricles along with basal cisterns and sulci over the convexities are mildly prominent. Old lacunar infarct noted within the left basal ganglia. No other abnormal parenchymal densities are seen. No evidence of intracranial hemorrhage. No midline shift or mass-effect is seen. No acute calvarial abnormality is seen. Visualized mastoid sinuses are clear. No acute paranasal sinus findings are appreciated. Minimal mucosal thickening is scattered within the ethmoid sinuses. Impression: 1. Minimal sinus findings believed to be nonacute. 2. 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 3. No acute intracranial abnormality is appreciated. If patient's symptoms are persistent, MRI could then be considered. Diagnostic code #3 This report was dictated in MDT
== END 2020-01-23 16:27 | disposition home or self-care (01) ==
LOC: JD.ED 13:32
DX: H53.9 Unspecified visual disturbance (principal); E78.00 Pure hypercholesterolemia, unspecified; I10 Essential (primary) hypertension; M10.9 Gout, unspecified; Z86.73 Personal history of transient ischemic attack (TIA), and cerebral infarction without residual deficits; Z79.82 Long term (current) use of aspirin; Z79.01 Long term (current) use of anticoagulants; Z79.899 Other long term (current) drug therapy; Z87.891 Personal history of nicotine dependence
CPT/HCPCS: 36415; 70450; 70450-26; 80053; 84484; 85025; 85610; 85730; 93005; 93010; 99283; 99284-25